=== PATIENT | female | born 1970 | race Caucasian/White ===

== ENCOUNTER 2018-02-09 04:51 | Emergency (ER) | payer BC, OTHER ==
[2018-02-09] MEDS ORDERED: MEPERIDINE HCL 25 MG/0.5 ML ONE (05:24)
[2018-02-09] MEDS ORDERED: ONDANSETRON 4 MG (ODT) TAB ONE (05:24)
[2018-02-09] MEDS ORDERED: MEPERIDINE HCL 50 MG/ML AMP ONE (05:24)
--- NOTE | 2018-02-09 05:59 | ER ---
Nurse's Notes [facility] Name: Staci Barrow Age: 48 yrs Sex: Female : 1970 Arrival Date: 02/09/2018 Time: 04:52 Bed 16 Private MD: Maurilio Byers B Diagnosis: Acute severe headache Presentation: 02/09 05:03 Presenting complaint: Patient states: I have a headache that started on Wednesday that jb4 went away but came back and it will not go away.. Transition of care: patient was not received from another setting of care. Onset of symptoms was February 05, 2018. Risk Assessment: Do you want to hurt yourself or someone else? Patient reports no desire to harm self or others. Initial Sepsis Screen: Does the patient meet any 2 criteria? No. Patient's initial sepsis screen is negative. Does the patient have a suspected source of infection? No. Patient's initial sepsis screen is negative. 05:03 Method Of Arrival: Ambulatory jb4 05:03 Acuity: KRISTOPHER 4 jb4 05:03 Care prior to arrival: None. jb4 Triage Assessment: 05:08 Headache History: The patient has had previous headaches and this one is more severe jb4 than previous episodes. General: Appears in no apparent distress. comfortable, Behavior is calm, cooperative, appropriate for age. Pain: Complains of pain in Headache. Pain does not radiate. Pain currently is 8 out of 10 on a pain scale. at worst was 10 out of 10 on a pain scale. Pain began 2-3 days ago. Also complains of photophobia, sleeplessness. EENT: No signs and/or symptoms were reported regarding the EENT system. Neuro: Level of Consciousness is awake, alert, obeys commands, Oriented to person, place, time, situation. Cardiovascular: Patient's skin is warm and dry. Respiratory: Airway is patent Respiratory effort is even, unlabored, Respiratory pattern is regular, symmetrical. GI: No signs and/or symptoms were reported involving the gastrointestinal system. : No signs and/or symptoms were reported regarding the genitourinary system. Derm: Skin is intact, Skin is pink, warm \T\ dry. Musculoskeletal: Circulation, motion, and sensation intact. 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 - Social history:: Smoking status: Patient/guardian denies using tobacco, Patient uses alcohol, only on a social basis. - Ebola Screening: : No symptoms or risks identified at this time. Screenin:10 Abuse screen: Denies threats or abuse. Nutritional screening: No deficits noted. jb4 Tuberculosis screening: No symptoms or risk factors identified. Fall Risk None identified. Assessment: 05:10 General: see triage assessment.. Pain: Complains of pain in headache. Pain currently is jb4 8 out of 10 on a pain scale. 05:58 Reassessment: Patient appears in no apparent distress at this time. Patient and/or jb4 family updated on plan of care and expected duration. Pain level reassessed. Patient is alert, oriented x 3, equal unlabored respirations, skin warm/dry/pink. Vital Signs: 05:03 BP 153 / 66; Pulse 67; Resp 18; Temp 98.0; Pulse Ox 100% on R/A; Weight 129.73 kg; jb4 Height 5 ft. 4 in. (162.56 cm) (R); Pain 8/10; 05:58 BP 144 / 74; Pulse 60; Resp 18; Pulse Ox 99% on R/A; jb4 05:03 Body Mass Index 49.09 (129.73 kg, 162.56 cm) jb4 ED Course: 04:52 Patient arrived in ED. am2 04:52 Maurilio Byers MD is Private Physician. am2 05:03 Vamshi Will RN is Primary Nurse. jb4 05:05 Triage completed. jb4 05:08 Marlon Hua MD is Attending Physician. pkl 05:08 Arm band placed on left wrist. jb4 05:10 Patient has correct armband on for positive identification. Call light in reach. Side jb4 rails up X 1. Pulse ox on. NIBP on. 05:31 CT Head Brain wo Cont In Process Unspecified. EDMS 05:58 Maurilio Byers MD is Referral Physician. pkl 06:05 No provider procedures requiring assistance completed. Patient did not have IV access jb4 during this emergency room visit. Administered Medications: 05:24 Drug: Demerol 75 mg Route: IM; Site: left deltoid; jb4 05:57 Follow up: Response: No adverse reaction; Pain is decreased jb4 05:24 Drug: Zofran 4 mg Route: PO; jb4 05:57 Follow up: Response: No adverse reaction; Nausea is decreased jb4 Outcome: 05:59 Discharge ordered by . pkl 06:05 Discharged to home ambulatory. jb4 06:05 Condition: stable 06:05 Discharge instructions given to patient, family, Instructed on discharge instructions, follow up and referral plans. medication usage, Demonstrated understanding of instructions, follow-up care, medications, Prescriptions given X 1. 06:06 Patient left the ED. jb4 Signatures: Dispatcher [employer] EDMarlon Dooley MD MD pkl Vamshi Will, RN RN jb4 Lesvia Loo
--- NOTE | 2018-02-09 06:00 | EDPHYS ---
Physician Documentation [facility] Name: Staci Barrow Age: 48 yrs Sex: Female : 1970 Arrival Date: 02/09/2018 Time: 04:52 Bed 16 Private MD: Maurilio Byers B ED Physician Marlon Hua HPI: 02/09 05:15 This 48 yrs old Female presents to ER via Ambulatory with complaints of pkl Headache. 05:15 The patient complains of pain to the top of head, left temporal area, right temporal pkl area and face. The patient describes the headache as constant. Onset: The symptoms/episode began/occurred 3 day(s) ago. Associated signs and symptoms: Pertinent positives: nausea. 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 - Social history:: Smoking status: Patient/guardian denies using tobacco, Patient uses alcohol, only on a social basis. - Ebola Screening: : No symptoms or risks identified at this time. ROS: 05:15 Eyes: Negative for injury, pain, redness, and discharge, ENT: Negative for injury, pkl pain, and discharge, Neck: Negative for injury, pain, and swelling, Cardiovascular: Negative for chest pain, palpitations, and edema, Respiratory: Negative for shortness of breath, cough, wheezing, and pleuritic chest pain, Abdomen/GI: Negative for abdominal pain, nausea, vomiting, diarrhea, and constipation, Back: Negative for injury and pain, : Negative for injury, bleeding, discharge, and swelling, MS/Extremity: Negative for injury and deformity, Skin: Negative for injury, rash, and discoloration. 05:15 Neuro: Positive for headache. Exam: 05:15 Head/Face: Normocephalic, atraumatic. Eyes: Pupils equal round and reactive to light, pkl extra-ocular motions intact. Lids and lashes normal. Conjunctiva and sclera are non-icteric and not injected. Cornea within normal limits. Periorbital areas with no swelling, redness, or edema. ENT: Nares patent. No nasal discharge, no septal abnormalities noted. Tympanic membranes are normal and external auditory canals are clear. Oropharynx with no redness, swelling, or masses, exudates, or evidence of obstruction, uvula midline. Mucous membranes moist. Neck: Trachea midline, no thyromegaly or masses palpated, and no cervical lymphadenopathy. Supple, full range of motion without nuchal rigidity, or vertebral point tenderness. No Meningismus. Chest/axilla: Normal chest wall appearance and motion. Nontender with no deformity. No lesions are appreciated. Cardiovascular: Regular rate and rhythm with a normal S1 and S2. No gallops, murmurs, or rubs. Normal PMI, no JVD. No pulse deficits. Respiratory: Lungs have equal breath sounds bilaterally, clear to auscultation and percussion. No rales, rhonchi or wheezes noted. No increased work of breathing, no retractions or nasal flaring. Abdomen/GI: Soft, non-tender, with normal bowel sounds. No distension or tympany. No guarding or rebound. No evidence of tenderness throughout. Back: No spinal tenderness. No costovertebral tenderness. Full range of motion. Skin: Warm, dry with normal turgor. Normal color with no rashes, no lesions, and no evidence of cellulitis. MS/ Extremity: Pulses equal, no cyanosis. Neurovascular intact. Full, normal range of motion. 05:15 Neuro: Orientation: is normal, Mentation: is normal, Memory: is normal, Cranial nerves: grossly normal, Cerebellar function: normal finger to nose testing, Motor: is normal, Sensation: is normal, Gait: is steady. Vital Signs: 05:03 BP 153 / 66; Pulse 67; Resp 18; Temp 98.0; Pulse Ox 100% on R/A; Weight 129.73 kg; jb4 Height 5 ft. 4 in. (162.56 cm) (R); Pain 8/10; 05:58 BP 144 / 74; Pulse 60; Resp 18; Pulse Ox 99% on R/A; jb4 05:03 Body Mass Index 49.09 (129.73 kg, 162.56 cm) jb4 MDM: 05:08 Patient medically screened. pkl 05:58 Data reviewed: vital signs, nurses notes, radiologic studies, CT scan. pkl 02/09 05:14 Order name: CT Head Brain wo Cont pkl Administered Medications: 05:24 Drug: Demerol 75 mg Route: IM; Site: left deltoid; jb4 05:57 Follow up: Response: No adverse reaction; Pain is decreased jb4 05:24 Drug: Zofran 4 mg Route: PO; jb4 05:57 Follow up: Response: No adverse reaction; Nausea is decreased jb4 Disposition: 02/09/18 05:59 Discharged to Home. Impression: Acute severe headache. - Condition is Stable. - Prescriptions for Ultram 50 mg Oral Tablet - take 1 tablet by ORAL route every 8 hours As needed; 20 tablet. - Work release form, Medication Reconciliation Form, Thank You Letter, Antibiotic Education, Prescription Opioid Use form. - Follow up: Maurilio Byers MD; When: 2 - 3 days; Reason: Re-evaluation by your physician. - Problem is new. - Symptoms have improved. Signatures: Dispatcher [employer] EDMarlon Dooley MD MD pkl Vamshi Will RN RN jb4 Corrections: (The following items were deleted from the chart) 06:06 05:59 02/09/2018 05:59 Discharged to Home. Impression: Acute severe headache. Condition jb4 is Stable. Forms are Medication Reconciliation Form, Thank You Letter, Antibiotic Education, Prescription Opioid Use. Follow up: Maurilio Byers; When: 2 - 3 days; Reason: Re-evaluation by your physician. Problem is new. Symptoms have improved. pkl
--- NOTE | 2018-02-09 07:05 | RAD REPORT ---
EXAM DESCRIPTION: CT - Head Brain Wo Cont - 02/09/2018 6:59 am CLINICAL HISTORY: Headache A preliminary report was provided at the time of the study and reviewed prior to final report. COMPARISON: None. TECHNIQUE: Axial 5 mm thick images of the head were obtained without IV contrast. All CT scans are performed using dose optimization technique as appropriate and may include automated exposure control or mA/KV adjustment according to patient size. FINDINGS: No intracranial hemorrhage, mass, edema or shift of mid-line structures. No acute infarcti on changes seen. No abnormal extra-axial fluid collections. Ventricles are normal. Mastoid air cells and visualized portions of the paranasal sinuses are clear. No acute bony findings. IMPRESSION: Negative non-contrast CT head examination.
== END 2018-02-09 06:06 | disposition home or self-care (01) ==
LOC: ER 04:51
DX: R51 Headache (principal)
CPT/HCPCS: 70450; 96372; 99284; J2175

== ENCOUNTER 2018-10-06 14:18 | Emergency (ER) | payer BC ==
--- OUTSIDE RECORDS SUMMARY | 2018-10-06 14:43 | XMS REPORT ---
:1970 [facility] Address [address] [place] [address] Dr. King [address] [place] [id number] Care Team Providers Name Role Phone Unavailable Unavailable Unavailable Problems This patient has no known problems. Allergies, Adverse Reactions, Alerts This patient has no known allergies or adverse reactions. Medications This patient has no known medications.
--- NOTE | 2018-10-06 15:09 | RAD REPORT ---
EXAM DESCRIPTION: RAD - Foot Left 3 View - 10/06/2018 2:50 pm CLINICAL HISTORY: Persistent foot pain following trauma COMPARISON: None. FINDINGS: Cortical irregularity is present at the base of the fifth proximal phalanx suspicious for nondisplaced, nonangulated fracture. Correlation is needed with any pain symptoms localizing to the f ifth MTP joint. No other evidence for fracture. No acute or destructive bone process otherwise noted. Large spur is present at the Achilles attachment. No air or foreign body in the soft tissues. IMPRESSION: Nondisplaced, nonangulated fracture changes are evident at the base of the fifth proxima l phalanx. Correlation is needed with pain symptoms localizing to the fifth MTP joint. No other acute finding.
--- NOTE | 2018-10-06 15:11 | EDPHYS ---
Physician Documentation [facility] Name: Staci Barrow Age: 48 yrs Sex: Female : 1970 Arrival Date: 10/06/2018 Time: 14:21 Bed 19 Private MD: Maurilio Byers B ED Physician Ronnie Moscoso HPI: 10/06 14:31 This 48 yrs old Female presents to ER via Ambulatory with complaints of Foot jr8 Injury. 14:31 The patient presents with pain, swelling, tenderness, bruising. The complaints affect jr8 the dorsum of left foot. Context: The problem was sustained at home, resulted from a direct blow, from a door, the patient can fully bear weight, the patient is able to ambulate, Problem is a result from a previous injury: No. Onset: The symptoms/episode began/occurred acutely, today. Modifying factors: The symptoms are alleviated by nothing. the symptoms are aggravated by movement, weight bearing. Associated signs and symptoms: The patient has no apparent associated signs or symptoms. Severity of symptoms: At their worst the symptoms were mild, in the emergency department the symptoms are unchanged. The patient has not experienced similar symptoms in the past. The patient has not recently seen a physician. 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 - Social history:: Smoking status: Patient/guardian denies using tobacco. - Ebola Screening: : No symptoms or risks identified at this time. ROS: 14:31 Eyes: Negative for injury, pain, redness, and discharge, ENT: Negative for injury, jr8 pain, and discharge, Neck: Negative for injury, pain, and swelling, Cardiovascular: Negative for chest pain, palpitations, and edema, Respiratory: Negative for shortness of breath, cough, wheezing, and pleuritic chest pain, Abdomen/GI: Negative for abdominal pain, nausea, vomiting, diarrhea, and constipation, Back: Negative for injury and pain, Skin: Negative for injury, rash, and discoloration, Neuro: Negative for headache, weakness, numbness, tingling, and seizure. 14:31 MS/extremity: Positive for ecchymosis, pain, swelling, tenderness, of the dorsum of left foot. Exam: 14:31 Eyes: Pupils equal round and reactive to light, extra-ocular motions intact. Lids and jr8 lashes normal. Conjunctiva and sclera are non-icteric and not injected. Cornea within normal limits. Periorbital areas with no swelling, redness, or edema. ENT: Nares patent. No nasal discharge, no septal abnormalities noted. Tympanic membranes are normal and external auditory canals are clear. Oropharynx with no redness, swelling, or masses, exudates, or evidence of obstruction, uvula midline. Mucous membranes moist. Neck: Trachea midline, no thyromegaly or masses palpated, and no cervical lymphadenopathy. Supple, full range of motion without nuchal rigidity, or vertebral point tenderness. No Meningismus. Cardiovascular: Regular rate and rhythm with a normal S1 and S2. No gallops, murmurs, or rubs. Normal PMI, no JVD. No pulse deficits. Respiratory: Lungs have equal breath sounds bilaterally, clear to auscultation and percussion. No rales, rhonchi or wheezes noted. No increased work of breathing, no retractions or nasal flaring. Abdomen/GI: Soft, non-tender, with normal bowel sounds. No distension or tympany. No guarding or rebound. No evidence of tenderness throughout. Back: No spinal tenderness. No costovertebral tenderness. Full range of motion. Skin: Warm, dry with normal turgor. Normal color with no rashes, no lesions, and no evidence of cellulitis. Neuro: Awake and alert, GCS 15, oriented to person, place, time, and situation. Cranial nerves II-XII grossly intact. Motor strength 5/5 in all extremities. Sensory grossly intact. Cerebellar exam normal. Normal gait. 14:31 Musculoskeletal/extremity: Extremities: grossly normal except: noted in the dorsum of left foot: Patient has bruising to top of foot near the MTP joints of the 2nd through 4th digits. Mild tenderness to palpation. Normal sensation and with full ROM with only mild pain. No other trauma or obvious deformity noted . Vital Signs: 14:22 BP 156 / 86; Pulse 61; Resp 16; Temp 97.8; Pulse Ox 100% ; Weight 121.56 kg; Height 5 aj ft. 8 in. (172.72 cm); Pain 8/10; 14:22 Body Mass Index 40.75 (121.56 kg, 172.72 cm) aj MDM: 14:27 Patient medically screened. jr8 15:08 Data reviewed: vital signs, nurses notes, radiologic studies, plain films. Data jr8 interpreted: Pulse oximetry: on room air is 100 %. Interpretation: normal. Counseling: I had a detailed discussion with the patient and/or guardian regarding: the historical points, exam findings, and any diagnostic results supporting the discharge/admit diagnosis, radiology results, the need for outpatient follow up, a family practitioner, to return to the emergency department if symptoms worsen or persist or if there are any questions or concerns that arise at home. 10/06 14:28 Order name: XRAY Foot LEFT 3 View; Complete Time: 20:26 jr8 Administered Medications: No medications were administered Disposition: 10/06/18 15:10 Discharged to Home. Impression: Contusion of left foot. - Condition is Stable. - Discharge Instructions: Foot Contusion. - Work release form, Medication Reconciliation Form, Thank You Letter, Antibiotic Education, Prescription Opioid Use form. - Follow up: Private Physician; When: 5 - 6 days; Reason: Recheck today's complaints, Continuance of care, Re-evaluation by your physician. - Problem is new. - Symptoms have improved. Addendum: 10/07/2018 17:05 Co-signature as Attending Physician, Ronnie Moscoso MD. g s Signatures: Dispatcher [employer] EDLesvia Tiwari RN RN aj Roszak, Josh, PA PA jr8 Enriqueta Norman RN RN hb Starr, Gregory, MD MD gs Corrections: (The following items were deleted from the chart) 10/06 15:25 15:10 10/06/2018 15:10 Discharged to Home. Impression: Contusion of left foot. aj Condition is Stable. Forms are Medication Reconciliation Form, Thank You Letter, Antibiotic Education, Prescription Opioid Use. Follow up: Private Physician; When: 5 - 6 days; Reason: Recheck today's complaints, Continuance of care, Re-evaluation by your physician. Problem is new. Symptoms have improved. jr8
--- NOTE | 2018-10-06 15:11 | ER ---
Nurse's Notes [facility] Name: Staci Barrow Age: 48 yrs Sex: Female : 1970 Arrival Date: 10/06/2018 Time: 14:21 Bed 19 Private MD: Maurilio Byers B Diagnosis: Contusion of left foot Presentation: 10/06 14:23 Presenting complaint: Left foot pain and bruising after refrigerator door fell off hinge and landed on foot this morning at 0500 today. Transition of care: patient was not received from another setting of care. Onset of symptoms was October 06, 2018. Risk Assessment: Do you want to hurt yourself or someone else? Patient reports no desire to harm self or others. Initial Sepsis Screen: Does the patient meet any 2 criteria? No. Patient's initial sepsis screen is negative. Does the patient have a suspected source of infection? No. Patient's initial sepsis screen is negative. Care prior to arrival: Medication(s) given: Motrin, at 1130. 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 - Social history:: Smoking status: Patient/guardian denies using tobacco. - Ebola Screening: : No symptoms or risks identified at this time. Screenin:25 Abuse screen: Denies threats or abuse. Denies injuries from another. Nutritional hb screening: No deficits noted. Tuberculosis screening: No symptoms or risk factors identified. Fall Risk None identified. Assessment: 14:41 General: Appears in no apparent distress. comfortable, Behavior is calm, cooperative, aj appropriate for age. Pain: Complains of pain in left foot. Neuro: Level of Consciousness is awake, alert, obeys commands, Oriented to person, place, time, situation, Appropriate for age. Respiratory: Airway is patent Respiratory effort is even, unlabored, Respiratory pattern is regular, symmetrical. Derm: Skin is intact, is healthy with good turgor, Skin is pink, warm \T\ dry. normal. Musculoskeletal: Reports pain in dorsum of left foot. Injury Description: Crush injury sustained to dorsum of left foot was sustained 4-6 hours ago. Vital Signs: 14:22 BP 156 / 86; Pulse 61; Resp 16; Temp 97.8; Pulse Ox 100% ; Weight 121.56 kg; Height 5 aj ft. 8 in. (172.72 cm); Pain 8/10; 14:22 Body Mass Index 40.75 (121.56 kg, 172.72 cm) aj ED Course: 14:21 Patient arrived in ED. mr 14:21 Maurilio Byers MD is Private Physician. mr 14:24 Triage completed. hb 14:25 Arm band placed on. EKG completed in triage. Results shown to MD. EKG completed in hb triage. Results shown to MD. 14:27 [facility] 14:27 Ronnie Moscoso MD is Attending Physician. jr 14:35 Lesvia Nixon, RN is Primary Nurse. aj 14:41 Patient has correct armband on for positive identification. aj 14:51 XRAY Foot LEFT 3 View In Process Unspecified. EDMS 15:24 No provider procedures requiring assistance completed. Patient did not have IV access aj during this emergency room visit. Administered Medications: No medications were administered Outcome: 15:10 Discharge ordered by . jr 15:24 Discharged to home ambulatory. aj 15:24 Condition: good 15:24 Discharge instructions given to patient, Instructed on discharge instructions, follow up and referral plans. Demonstrated understanding of instructions, follow-up care. 15:25 Patient left the ED. aj Signatures: Dispatcher [employer] EDMS Lesvia Nixon, RN RN eris ReidMichelle mr Froylan Roman PA PA jrEnriqueta Johnston RN RN Corrections: (The following items were deleted from the chart) 14:35 14:22 BP 156 / 86; Pulse 16bpm; Resp 16bpm; Pulse Ox 100%; Temp 97.8F; 121.56 kg; aj Height 5 ft. 8 in.; BMI: 40.7; Pain 8/10; hb
== END 2018-10-06 15:25 | disposition home or self-care (01) ==
LOC: ER 14:18
DX: S90.32XA Contusion of left foot, initial encounter (principal); W22.8XXA Striking against or struck by other objects, initial encounter; Y92.009 Unspecified place in unspecified non-institutional (private) residence as the place of occurrence of the external cause; D64.9 Anemia, unspecified; C53.9 Malignant neoplasm of cervix uteri, unspecified
CPT/HCPCS: 99283